=== PATIENT | female | born 1985 | race Caucasian/White ===

== ENCOUNTER → 2020-11-24 | Outpatient (CLI) | payer OTHER | LOC: KOH-I 10:51 | DX: M51.27 Other intervertebral disc displacement, lumbosacral region (principal) | CPT/HCPCS: 72148 ==

== ENCOUNTER → 2021-06-26 | Outpatient (CLI) | payer OTHER | LOC: KOH-I 15:29 | DX: M51.27 Other intervertebral disc displacement, lumbosacral region (principal); M51.26 Other intervertebral disc displacement, lumbar region | CPT/HCPCS: 72148 ==

== ENCOUNTER → 2021-07-15 | Outpatient (CLI) | payer OTHER ==
[~2021-07-15] MED LIST: HYDROCODONE-AC1 EACH PO; NEURONTIN600 MG PO; NORTRIPTYLINE H25 MG PO; PROTONIX40 MG PO; ROBAXIN 750 MG750 MG PO
[2021-07-15 10:12] LABS: RED BLOOD COUNT 4.43 M/UL (4.00-5.10); WHITE BLOOD COUNT 8.3 K/UL (4.5-11.0)
[2021-07-15 10:38] LABS: BUN/CREATININE RATIO 13 (0-10)
== END ==
LOC: OPSV2 08:59
PROVIDERS: Orthopaedic Surgery
DX: Z01.818 Encounter for other preprocedural examination (principal); Z51.81 Encounter for therapeutic drug level monitoring; M47.26 Other spondylosis with radiculopathy, lumbar region
CPT/HCPCS: 36415; 71046; 80048; 81001; 85027; 85610; 85730; 93005

== ENCOUNTER → 2021-07-29 | Day surgery (SDC) | payer OTHER ==
[~2021-07-29] VITALS: Ht 154.9 cm; Wt 70.3 kg
== END | disposition home or self-care (01) ==
LOC: OR 05:30
DX: M51.16 Intervertebral disc disorders with radiculopathy, lumbar region (principal); M51.27 Other intervertebral disc displacement, lumbosacral region; Z20.822 Contact with and (suspected) exposure to COVID-19; Z98.51 Tubal ligation status; J44.9 Chronic obstructive pulmonary disease, unspecified; M79.7 Fibromyalgia; K21.9 Gastro-esophageal reflux disease without esophagitis
CPT/HCPCS: 72100; 76000; 86850; 86900; 86901; C1781; J0690; J1040; J1100; J1170; J1885; J2250; J2405; J2704; J2710; J3010; J3370; J7040; J7120

== ENCOUNTER → 2022-01-25 | Outpatient (CLI) | payer OTHER | LOC: EMI 01-21 15:00 | DX: M54.16 Radiculopathy, lumbar region (principal); Z98.890 Other specified postprocedural states; R93.7 Abnormal findings on diagnostic imaging of other parts of musculoskeletal system | CPT/HCPCS: 72158; A9577 ==